=== PATIENT | male | born 1995 | race Caucasian/White ===

== ENCOUNTER 2017-05-02 14:58 | Emergency (ER) | payer SELFPAY ==
[~2017-05-02] VITALS: Ht 182.9 cm; Wt 97.9 kg
[2017-05-02] MEDS ORDERED: MOTRIN800 MG PO (17:11)
[2017-05-02] MEDS ORDERED: SAPHRIS10 MG SL (17:22)
[2017-05-02] MEDS ORDERED: BENZTROPINE MESY1 MG PO (17:22)
[2017-05-02] MEDS ORDERED: ALLOPURINOL100 MG PO (17:23)
[2017-05-02] MEDS ORDERED: PAIN RELIEF650 MG PO (17:23)
[2017-05-02] MEDS ORDERED: ATORVASTATIN CA10 MG PO (17:23)
[2017-05-02] MEDS ORDERED: FLONASE SENSIM9.9 ML BOTH NARES (17:24)
[2017-05-02 18:00] VITALS: BP 00/00
== END 2017-05-02 18:16 ==
LOC: EME 14:58
DX: S83.92XA Sprain of unspecified site of left knee, initial encounter (principal); W22.8XXA Striking against or struck by other objects, initial encounter; F84.0 Autistic disorder
CPT/HCPCS: 73564; 99281; 99283

== ENCOUNTER 2017-06-08 19:32 | Emergency (ER) | payer SELFPAY ==
[~2017-06-08] VITALS: Ht 185.4 cm; Wt 98.7 kg
[~2017-06-08 19:32] MED LIST: ALLOPURINOL100 MG PO; ATORVASTATIN CA10 MG PO; BENZTROPINE MESY1 MG PO; FLONASE SENSIM9.9 ML BOTH NARES; MOTRIN800 MG PO; PAIN RELIEF650 MG PO; SAPHRIS10 MG SL
[2017-06-08 21:46] VITALS: BP 121/76
== END 2017-06-08 21:47 | disposition home or self-care (01) ==
LOC: EME 19:32
DX: S30.0XXA Contusion of lower back and pelvis, initial encounter (principal); Y04.0XXA Assault by unarmed brawl or fight, initial encounter; F84.0 Autistic disorder
CPT/HCPCS: 74176; 76870; 99281; 99284